=== PATIENT | female | born 1990 | race African-American/Black ===

== ENCOUNTER 2019-09-19 12:18 | Inpatient (IN) | payer MEDICAID ==
[~2019-09-19] VITALS: Ht 162.6 cm; Wt 97.1 kg
[2019-09-19 12:27] VITALS: BP 110/74
--- NOTE | 2019-09-19 13:05 | NUR ---
29 Y/F PRESENTS TO ED FOR LOW BACK PAIN THAT RADIATES TO B KNEE. PT REPORTS IT FEELS LIKE SICKLE CELL CRISIS. PT REPORTS 9/10 ACHY, SHARP PAIN WHICH IS UNRELIEVED BY TYLENOL AND PERCOCET. PT ALSO REPORTS FEVER 101 LAST NIGHT AND HEADACHE. PT DENIES INJURY TO BACK, DENIES DYSURIA, HEMATURIA, VOMITING OR DIARRHEA. PMH- PYELONEPHRITIS, GALLBLADDER REMOVAL, DVT
--- NOTE | 2019-09-19 13:18 | NUR ---
DR SCHROEDER EXAMINING PT
[2019-09-19] MEDS ORDERED: NACL 0.9% 1,000 ML IV SCH (13:26)
[2019-09-19] MEDS ORDERED: MORPHINE SULFATE 2 MG/ML SYR IVP ONE ×2 (13:30→15:40)
[2019-09-19 14:03] LABS: BASOPHILS # (AUTO) 0.1 K/uL (0.00-0.22); BASOPHILS % (AUTO) 0.9 % (0.0-2.0); EOSINOPHILS # (AUTO) 0.8 K/uL (0-0.4); EOSINOPHILS % (AUTO) 9.3 % (0.0-4.0); HEMATOCRIT 26.4 % (36-48); HEMOGLOBIN 8.3 g/dL (12.0-16.0); LYMPHOCYTES # (AUTO) 1.7 K/uL (2.5-16.5); LYMPHOCYTES % (AUTO) 19.4 % (20.5-51.1); MEAN CORPUSCULAR HEMOGLOBIN 21 pg (27-31); MEAN CORPUSCULAR HGB CONC 31 g/dL (33-37); MEAN CORPUSCULAR VOLUME 67.8 fL (80-94); MONOCYTES # (AUTO) 0.7 K/uL (0.8-1.0); MONOCYTES % (AUTO) 7.7 % (1.7-9.3); NEUTROPHILS # (AUTO) 5.4 K/uL (1.8-7.7); NEUTROPHILS % (AUTO) 62.7 % (42.2-75.2); PLATELET COUNT (AUTO) 395 K/uL (140-450); RED CELL DISTRIBUTION WIDTH 18.6 % (11.6-13.7); WHITE BLOOD COUNT (AUTO) 8.6 K/uL (4.8-10.8)
[2019-09-19 14:27] LABS: ALBUMIN 3.4 g/dL (3.4-5.0); ANION GAP 13.8 (8-16); CARBON DIOXIDE 24.7 mmol/L (21-32); CREATININE 0.9 mg/dL (0.6-1.3); POTASSIUM 3.5 mmol/L (3.5-5.1); TOTAL BILIRUBIN 0.2 mg/dL (0.0-1.0)
[2019-09-19 14:39] LABS: PROTHROMBIN TIME 11.5 secs (10.8-13.4)
[2019-09-19] MEDS ORDERED: diphenhydrAMINE 50 MG/ML VIAL IVP ONE (14:40)
--- NOTE | 2019-09-19 15:51 | NUR ---
PT C/O LOWER BACK PAIN RADIATING TO BLE DESPITE SHORT-TERM RELIEF FROM PREVIOUS MORPHINE IVP. PT GIVEN ANOTHER DOSE OF MORPHINE IVP AT THIS TIME WITH EDUCATION, PT VERBALIZED UNDERSTANDING, TOLERATED MED WELL. VSS. ALL NEEDS MET.
--- NOTE | 2019-09-19 16:47 | NUR ---
PT STATED THAT 2ND DOSE OF MORPHINE IVP HAS HELPED SHORT-TERM BUT STILL HAS PAIN, PT REFUSED MORE PAIN MED AT THIS TIME. ALL NEEDS MET.
[2019-09-19] MEDS ORDERED: FERR-252 PO (17:18)
[2019-09-19] MEDS ORDERED: ASCO500T45 PO (17:18)
[2019-09-19] MEDS ORDERED: VITA1TAB44 PO (17:18)
--- NOTE | 2019-09-19 17:23 | NUR ---
PT AWAKE AND ALERT ON CELL PHONE, STATES MILD, TOLERABLE PAIN. VSS. WILL CONTINUE TO MONITOR
[2019-09-19] MEDS ORDERED: HYDROcodone/APAP 5/325 MG 1 TAB TAB PO PRN (17:25)
[2019-09-19] MEDS ORDERED: ZOLPIDEM 5 MG TAB PO PRN (17:25)
[2019-09-19] MEDS ORDERED: ONDANSETRON 4 MG/2 ML VIAL IM/IVP PRN (17:25)
[2019-09-19] MEDS ORDERED: DOCUSATE SODIUM 100 MG GELCAP PO PRN (17:25)
[2019-09-19 18:02] LABS: FREE T4 (FREE THYROXINE) 0.92 ng/dL (0.76-1.46); MAGNESIUM 1.8 mg/dL (1.8-2.4); PHOSPHORUS 3.1 mg/dL (2.5-4.9); THYROID STIMULATING HORMONE 0.44 uIU/mL (0.34-3.74)
--- NOTE | 2019-09-19 18:10 | NUR ---
RECEIVED PATIENT FROM ED NURSE VIA WHEELCHAIR. PATIENT IS AAOX4, RESPIRATIONS EVEN AND UNLABORED, ROOM AIR. LUNG SOUNDS CLEAR. NO SOB. VISIBLE CHEST RISE NOTED. MED-SURG. PATIENT DENIES CHEST PAIN. PATIENT IS DIAGNOSED WITH SICKLE CELL ANEMIA. PAIN ALL OVER THE BODY. ABDOMEN ROUND, SOFT, AND NONTENDER. SKIN WARM, DRY, AND INTACT. IV IN THE LEFT WRIST G22, SALINE LOCK. IV FLUSHED WELL. PATIENT IS AMBULATORY. BED IN LOW POSITION. CALL LIGHT IS WITHIN REACH. WILL CONTINUE TO MONITOR.
--- NOTE | 2019-09-19 18:11 | NUR ---
MRSA NARES SWAB COLLECTED. PATIENT IS UP TO DATE WITH FLU VACCINE, 2018. GIVEN WARM BLANKET REQUESTED. VITAL SIGNS: BP 132/63, HR 82, T 98.3, RESP 21 ROOM AIR, O2SAT 100%. PAIN ALL OVER THE BODY 10. PATIENT RECEIVED MORPHINE TWICE IN EMERGENCY DEPARTMENT.
--- NOTE | 2019-09-19 18:14 | NUR ---
Patient will be admitted to care of DR MORENO. Admited to MED SURG. Will go to [id number]. Belongings list completed. Report to RADHA BRAVO.
[2019-09-19] MEDS: NACL 0.9% 1,000 ML IV SCH (18:22)
--- NOTE | 2019-09-19 18:22 | NUR ---
HANG NEW IV BAG OF NS AT A RATE OF 60 ML/HR.
--- NOTE | 2019-09-19 18:26 | NUR ---
WILL CALL FNS FOR PATIENT'S DINNER TRAY
--- NOTE | 2019-09-19 19:18 | NUR ---
REPORT GIVEN TO STATE INSPECTOR NURSE. PT IS ASLEEP IN BED WITH NO SIGNS OF DISTRESS NOTED. IVF IS ASYMPTOMATIC AND RUNNING PER ORDERS. PT IS IN STABLE CONDITION WITH SAFETY MEASURES IN PLACE AND CALL LIGHT WITHIN REACH.
--- NOTE | 2019-09-19 19:19 | NUR ---
RECEIVED BEDSIDE REPORT FROM DAY SHIFT NURSE. PATIENT IS AAOX4, RESPIRATIONS EVEN AND UNLABORED WITH ROOM AIR. LUNG SOUNDS CLEAR. NO SOB. SKIN INTACT, WARM AND DRY TO TOUCH. IV IN THE LEFT WRIST G22, INTACT, PATENT, AND ASYMPTOMATIC. PATIENT IS AMBULATORY. BED IN LOW POSITION. CALL LIGHT IS WITHIN REACH. WILL CONTINUE TO MONITOR.
[2019-09-19] MEDS: MORPHINE SULFATE 2 MG/ML SYR IVP PRN (20:38)
--- NOTE | 2019-09-19 20:38 | NUR ---
PT C/O PAIN 02/09, GIVEN MORPHINE MD ORDERED. PT TOLERATED WELL.
--- NOTE | 2019-09-19 21:08 | NUR ---
PT STILL C/O PAIN, STATE 2MG OF MORPHINE DOES NOT WORKING. REPORTED TO DR. CRUZ, WANTED TO KEEP CURRENT DOSE. EXPLAINED TO PT, PT VERBALIZED UNDERSTANDING.
[2019-09-19] MEDS ORDERED: SODIUM FERRIC GLUCONATE 125 MG in NACL 0.9% 100 ML IV SCH (21:30)
[2019-09-19] MEDS ORDERED: SODIUM FERRIC GLUCONATE 12.5 MG/ML AMP IV ONE (22:34)
--- NOTE | 2019-09-19 22:44 | NUR ---
GIVEN FERRLECIT MD ORDERED. PT TOLERATED WELL.
[2019-09-20] VITALS: BP 111/61
[2019-09-20] MEDS: MORPHINE SULFATE 2 MG/ML SYR IVP PRN ×5 (00:19→19:53)
--- NOTE | 2019-09-20 00:19 | NUR ---
PT C/O 02/09 PAIN. GIVEN MORPHINE MD ORDERED. PT TOLERATED WELL.
--- NOTE | 2019-09-20 01:40 | NUR ---
PT C/O ITCHY. GIVEN BENADRYL MD ORDERED. PT TOLERATED WELL.
--- NOTE | 2019-09-20 03:29 | NUR ---
PT C/O PAIN 02/09, GIVEN MORPHINE MD ORDERED.
[2019-09-20 03:49] LABS: APPEARANCE,URINE CLEAR (CLEAR); BILIRUBIN,URINE NEGATIVE (NEGATIVE); BLOOD, URINE TRACE-I (NEGATIVE); COLOR,URINE YELLOW (YELLOW); LEUKOCYTE ESTERASE ,URINE NEGATIVE (NEGATIVE); NITRITE, URINE NEGATIVE (NEGATIVE); PH,URINE 6.5 (5.0-9.0); UGLUCOSE NEGATIVE (NEGATIVE)
[2019-09-20 04:14] LABS: BARBITURATE, URINE NEGATIVE ng/ml (NEG <=200); BENZODIAZEPINE, URINE NEGATIVE ng/mL (NEG <=200); CANNABINOID, URINE NEGATIVE ng/mL (NEG <=50); COCAINE, URINE NEGATIVE ng/mL (NEG <=300); OPIATE, URINE POSITIVE ng/mL (NEG <=2000); PHENCYCLIDINE SCREEN,URINE NEGATIVE ng/mL (NEG <=25)
[2019-09-20 04:26] LABS: WBC,URINE 0-5 /HPF (0-5)
--- NOTE | 2019-09-20 05:15 | NUR ---
PT SLEEPING IN BED. NO ACUTE DISTRESS NOTED.
[2019-09-20] MEDS: NACL 0.9% 1,000 ML IV SCH (05:49)
[2019-09-20 06:46] LABS: MEAN CORPUSCULAR HEMOGLOBIN 21 pg (27-31); MEAN CORPUSCULAR HGB CONC 31 g/dL (33-37); MEAN CORPUSCULAR VOLUME 68.4 fL (80-94); PLATELET COUNT (AUTO) 369 K/uL (140-450); RED CELL DISTRIBUTION WIDTH 18.8 % (11.6-13.7); WHITE BLOOD COUNT (AUTO) 5.7 K/uL (4.8-10.8)
--- NOTE | 2019-09-20 06:52 | NUR ---
PT IN STABLE CONDITION. WILL ENDORSE PT TO DAY SHIFT NURSE.
[2019-09-20 07:03] LABS: ANION GAP 13.5 (8-16); CARBON DIOXIDE 23.9 mmol/L (21-32); CREATININE 0.9 mg/dL (0.6-1.3); POTASSIUM 3.4 mmol/L (3.5-5.1)
[2019-09-20 07:08] LABS: MAGNESIUM 1.8 mg/dL (1.8-2.4); PHOSPHORUS 3.4 mg/dL (2.5-4.9)
[2019-09-20 07:09] LABS: CHOL/HDL RATIO 2.8 (1-4.5)
--- NOTE | 2019-09-20 07:30 | NUR ---
RECEIVED BEDSIDE SHIFT REPORT FROM REPORTING MANAGER NURSE FOR CONTINUATION OF CARE.
[2019-09-20 07:53] LABS: EOSINOPHILS % (MANUAL) 10 % (0-4); LYMPHOCYTES % (MANUAL) 34 % (20-46); MONOCYTES % (MANUAL) 11 % (5-12)
[2019-09-20 08:00] VITALS: BP 118/57
--- NOTE | 2019-09-20 08:20 | NUR ---
PATIENT HAS BEEN SCREENED AND CATEGORIZED MODERATE NUTRITION RISK. PATIENT WILL BE SEEN WITHIN 3-5 DAYS OF ADMISSION. 09/22/19 09/24/[address]
[2019-09-20] MEDS: FERROUS SULFATE 325 MG TABEC PO SCH ×2 (08:33→16:58)
[2019-09-20] MEDS: MULTIVITAMIN 1 TAB PO SCH (08:34)
[2019-09-20] MEDS: FOLIC ACID 1 MG TAB PO SCH (08:34)
[2019-09-20] MEDS: ASCORBIC ACID 500 MG TAB PO SCH (08:34)
--- NOTE | 2019-09-20 10:00 | NUR ---
MEDICATED FOR PAIN WITH MORPHINE 2MG IVP. PATIENT MOANS PERIODICALLY. PLACED ON 2L O2 VIA NASAL CANNULA PER MD'S ORDERS. CALL LIGHT ON AND WITHIN REACH, WILL CONTINUE TO MONITOR.
--- NOTE | 2019-09-20 11:37 | NUR ---
Punch Hand Note: Basic Screen: Yes High Risk DC Screen Sparkman: MARITO CURRY [place] Tel: PATIENT HAS PHONE NUMBER IN CELLPHONE Relationship: MOTHER Pre-Admission Living Arrangements: Lives with Other Prior ADL Independent Current Home Health Name/Tel: N/A Current DME/02 Name/Tel: N/A Current Hospice Name/Tel: N/A Current Dialysis Name/Tel: N/A Healthcare Decision Maker: Patient Advance Directive No - REFUSED Physician Orders for Life Sustaining Treatment Form No Patient/Family Have Educational Needs No Information Taught: Advance Directive Person Taught: Patient Teaching Tools: Verbal Factors Affecting Learning: None Participation Level: Refused Discipline: Case Mgt/Social Svcs Tentative Discharge Plan/Destination: No Needs Identified Will require assistance post discharge: No Referred to Shipping Specialist: No Tentative Discharge Plan Summary: Patient is a 29-year-old female admitted for sickle cell crisis. Patient has PMHX of sickel cell anemia and DVT. Patient was admitted from home where she lives with her mother. SW met with patient at bedside to verify demographics. Patient reports no history of mental health and no history of substance abuse. SW assessed for risk factors but none were apparent. Tentative discharge plan is for patient to return home. No further needs identified. Signature: Maurizio Cross Date: Sep 20, 2019 Time: 11:36
--- NOTE | 2019-09-20 13:06 | NUR ---
PATIENT IS RESTING IN BED, OBSERVED CHEST RISE AND FALL. CALL LIGHT ON AND WITHIN REACH, WILL CONTINUE TO MONITOR.
--- NOTE | 2019-09-20 15:30 | NUR ---
MEDICATED FOR PAIN WITH MORPHINE.
[2019-09-20 16:00] VITALS: BP 92/46
[2019-09-20] MEDS: POTASSIUM CHLORIDE 10 MEQ TABER PO SCH ×2 (16:00→16:57)
--- NOTE | 2019-09-20 19:14 | NUR ---
BEDSIDE SHIFT REPORT GIVEN TO CLOTH FOLDER MACHINE NURSE FOR CONTINUATION OF CARE.
--- NOTE | 2019-09-20 19:15 | NUR ---
RECEIVED BEDSIDE SHIFT REPORT FROM [facility] NURSE TELLEZ FOR CONTINUITY OF CARE. PATIENT AWAKE IN BED NO SIGNS OF DISTRESS NOTED. IV FLUSHED AND PATENT. RESPIRATIONS EVEN AND UNLABORED ON RA. SAFETY MEASURES IN PLACE. CALL LIGHT WITHIN REACH
--- NOTE | 2019-09-20 19:53 | NUR ---
PT C/O SEVERE PAIN. BP CHECKED PRIOR TO PRN MEDICATION ADMINISTRATION 119/52. ADMINISTERED PRN MORPHINE PER PT REQUEST. PT TOLERATED WEL.. NO SIGNS OF DISTRESS NOTED. RESPIRATIONS EVEN AND UNLABORED ON RA. SAFETY MEASURES IN PLACE. CALL LIGHT WITHIN REACH. WILL REASSESS PT PAIN LEVEL
--- NOTE | 2019-09-20 20:21 | NUR ---
PT C/O N/V. ADMINISTERED PRN ZOFRAN FOR NAUSEA. PT TOLERATED WELL. NO SIGNS OF DISTRESS NOTED. RESPIRATIONS EVEN AND UNLABORED. SAFETY MEASURES IN PLACE CALL LIGHT WITHIN REACH
[2019-09-20] MEDS ORDERED: ONDANSETRON 4 MG/2 ML VIAL IM/IVP PRN (20:25)
[2019-09-20] MEDS ORDERED: hydrOXYzine HCL 10 MG TAB PO SCH (20:25)
--- NOTE | 2019-09-20 20:53 | NUR ---
PT PAIN REASSESSED. PT DENIES PRESENCE OF PAIN. PT REQUESTED A SANDWICH BECAUSE PAIN LEVEL AND NAUSEA WAS GONE. SANDWICH REQUESTED FROM SUPERVISING FILM OR VIDEOTAPE EDITOR.
[2019-09-21] VITALS: BP 104/56
[2019-09-21] MEDS: MORPHINE SULFATE 2 MG/ML SYR IVP PRN ×3 (00:09→07:30)
--- NOTE | 2019-09-21 00:09 | NUR ---
/O PAIN . MEDICATED WITH MORPHINE IVP ORDERED. REFUSED THE ATARAX FOR ITCHING. SHE SAID SHE DOESN'T WANT TO TAKE ANYTHING THAT SHE DON'T KNOW MIGHT CAUSE ITCHING.
[2019-09-21] MEDS: ACETAMINOPHEN 325 MG TAB PO PRN ×2 (01:09→08:22)
--- NOTE | 2019-09-21 01:09 | NUR ---
PT C/O 09/09 HEADACHE. ADMINISTERED 650MG PER PRN ORDER. I INITIALLY PULLED OUT 325MG, RETURNED TO THE OMNICELL TO OBTAIN THE REMAINING 325MG TO TOTAL 650MG. PT TOLERATED WELL. AMBULATING IN HALLWAY A METHOD DISTRACTION FOR PAIN.
--- NOTE | 2019-09-21 03:26 | NUR ---
ROUNDING. PT AWAKE, C/O NAUSEA. PT WAS GIVEN CRACKERS FOR NAUSEA PER HER REQUEST.
--- NOTE | 2019-09-21 04:57 | NUR ---
ROUNDING. PATIENT AWAKE IN BED. STATES SHE IS HAVING TROUBLE GOING TO SLEEP. ASKED FOR SOME JUICE. JUICE PROVIDED PER PATIENTS REQUEST. WILL CONTINUE TO MONITOR
[2019-09-21] MEDS: NACL 0.9% 1,000 ML IV SCH (05:07)
[2019-09-21 07:08] LABS: FOLIC ACID 9.5 ng/mL (>3.0)
--- NOTE | 2019-09-21 07:15 | NUR ---
RECEIVED REPORT FROM PSYCHOLOGIST COUNSELING NURSE. PT IS CURRENTLY AWAKE IN BED WITH COMPLAINTS OF PAIN. PSYCHOLOGIST COUNSELING NURSE ADMINISTERED MEDICATION FOR PAIN RIGHT BEFORE ENDORSEMENT PER ORDERS. PT IS ON ROOM AIR WITH RESPIRATIONS EVEN AND UNLABORED WITH VISIBLE CHEST RISE AND FALL. IV IS ASYMPTOMATIC AND PATENT WITH IVF RUNNING PER ORDERS. SKIN IS INTACT. BED IS IN LOW POSITION, SAFETY MEASURES IN PLACE, CALL LIGHT WITHIN REACH, AND WILL CONTINUE TO MONITOR.
[2019-09-21] MEDS ORDERED: HYDR-5122 PO (07:26)
--- NOTE | 2019-09-21 07:30 | NUR ---
ENDORSED PT IN STABLE CONDITION TO AM NURSE.
[2019-09-21 08:00] VITALS: BP 104/62
[2019-09-21] MEDS: ASCORBIC ACID 500 MG TAB PO SCH (08:22)
[2019-09-21] MEDS: MULTIVITAMIN 1 TAB PO SCH (08:22)
[2019-09-21] MEDS: FERROUS SULFATE 325 MG TABEC PO SCH (08:23)
[2019-09-21] MEDS: FOLIC ACID 1 MG TAB PO SCH (08:23)
--- NOTE | 2019-09-21 08:26 | NUR ---
PT IS ALERT, AWAKE, AND LAYING IN BED. PT COMPLAINS OF HEADACHE THEREFORE MEDICATIONS WERE ADMINISTERED PER ORDER. PT COMPLAINS OF GENERALIZED BODY PAIN OF 7 OUT 10 AND PAIN MEDICATION WAS ADMINISTERED AN HOUR AGO. PATIENT HAS NO OTHER COMPLAINTS AT THIS TIME. SAFETY MEASURES IN PLACE, CALL LIGHT WITHIN REACH AND WILL CONTINUE TO MONITOR PLAN OF CARE.
[2019-09-21 09:26] VITALS: BP 104/62
--- NOTE | 2019-09-21 10:40 | NUR ---
PT DISCHARGED HOME AT THIS TIME. DISCHARGE, FOLLOW UP AND PRESCRIBED MEDICATION EDUCATION GIVEN, PT VERBALIZED UNDERSTANDING. DISCHARGE PAPERWORK SIGNED, FLU VACCINE UP TO DATE, PNA NA. IV SITE WITH MINIMAL BLOOD LOSS AND LUMEN INTACT. ID BANDS REMOVED. BELONGINGS VERIFIED AND RETURNED TO PATIENT. SKIN INTACT, RESPIRATIONS EVEN AND UNLABORED, NO COMPLAINTS OF PAIN. PT ESCORTED OFF UNIT ON FOOT LEFT THE HOSPITAL IN PRIVATE VEHICLE TO HOME.
== END 2019-09-21 10:45 | disposition home or self-care (01) | DRG 662 ==
LOC: MED 12:18 → MTU 17:28
PROVIDERS: ADMIT General Practice; ATTEND General Practice
DX: D57.00 Hb-SS disease with crisis, unspecified (principal); E66.9 Obesity, unspecified; E87.6 Hypokalemia; Z68.36 Body mass index [BMI] 36.0-36.9, adult; Z71.3 Dietary counseling and surveillance; Z88.1 Allergy status to other antibiotic agents; Z88.0 Allergy status to penicillin; Z86.718 Personal history of other venous thrombosis and embolism; Z90.49 Acquired absence of other specified parts of digestive tract
CPT/HCPCS: 36415; 71045; 80048; 80053; 80305; 81001; 82150; 82607; 82728; 82746; 83036; 83540; 83605; 83690; 83735; 83880; 84100; 84134; 84439; 84443; 84484; 85007; 85025; 85045; 85610; 85730; 87040; 87081; 93970; 96361; 96374; 96375; 96376; 99285; J1200; J2270; J2405; J2916; J7030; Q0092; Q0163